=== PATIENT | male | born 1980 | race Caucasian/White ===

== ENCOUNTER 2021-04-06 12:11 | Emergency (ER) | payer OTHER ==
[2021-04-06 12:23] VITALS: BP 132/84; PULSE 90
[2021-04-06] MEDS ORDERED: Sodium Chloride 0.9% 10 ML Syringe FLUSH PRN ×2 (12:28→13:09)
[2021-04-06] MEDS ORDERED: Sodium Chloride 0.9% 1,000 ML IV STA (12:28)
[2021-04-06] MEDS ORDERED: Ondansetron 4 MG/2 ML SDV IVPUSH ONE (12:28)
[2021-04-06] MEDS ORDERED: HYDROmorphone 0.5 MG/0.5 ML Syringe IVPUSH ONE ×3 (12:28→16:13)
--- NOTE | 2021-04-06 12:35 | EDM.PDOC ---
ED HPI GENERAL MEDICAL PROBLEM - General Chief Complaint: Abdominal Pain Stated Complaint: ABDOMINAL PAIN Time Seen by Provider: 04/06/21 12:21 Source of Information: Reports: Patient, RN Notes Reviewed History Limitations: Reports: No Limitations - History of Present Illness INITIAL COMMENTS - FREE TEXT/NARRATIVE: Patient is a 40-year-old male presenting to the emergency department with complaints of lower abdominal pain. Reports symptoms began last evening, however pain was more so in his back. Reports left is worse than right. Today, pain has moved to his lower abdomen with the left being worse than the right. He took ibuprofen last evening with little relief. Denies any fever, chills, nausea, vomiting, or diarrhea. Reports he had a normal bowel movement last ev ening. Denies any visible blood in his stool or urine. Patient has no chronic medical conditions. Denies history of kidney stones. Lower Abdomen Pain Score (Numeric/FACES): 9 - Related Data Allergies Allergy/AdvReac Type Severity Reaction Status Date / Time No Known Allergies Allergy Verified 04/06/21 12:23 Home Meds: Home Meds Meloxicam 15 mg PO DAILY 04/06/21 [History] Sildenafil Citrate [Viagra] 100 mg PO ASDIRECTED 04/06/21 [History] Past Medical History Musculoskeletal History: Reports: Arthritis Psychiatric History: Reports: Anxiety, Depression Endocrine/Metabolic History: Reports: Obesity/BMI 30+ - Past Surgical History Male Surgical History: Reports: Vasectomy Social & Family History - Tobacco Use Tobacco Use Status *Q: Current Every Day Tobacco User Years of Tobacco use: 30 Packs/Tins Daily: 0.1 - Caffeine Use Caffeine Use: Reports: Coffee, Energy Drinks - Recreational Drug Use Recreational Drug Use: No ED ROS GENERAL - Review of Systems Review Of Systems: Comprehensive ROS is negative, except as noted in HPI. ED EXAM, GI/ABD - Physical Exam Exam: See Below Exam Limited By: No Limitations General Appearance: Alert, Mild Distress Respiratory/Chest: No Respiratory Distress, Lungs Clear, Normal Breath Sounds, No Accessory Muscle Use, Chest Non-Tender Cardiovascular: Normal Peripheral Pulses, Regular Rate, Rhythm, No Edema, No Gallop, No JVD, No Murmur, No Rub GI/Abdominal Exam: Normal Bowel Sounds, Soft, No Organomegaly, No Distention, No Abnormal Bruit, No Mass, Pelvis Stable, Tender (LLQ and left lateral) Back Exam: Normal Inspection, Full Range of Motion, CVA Tenderness (L). No: CVA Tenderness (R) Neurological: Alert, Oriented, CN II-XII Intact, Normal Cognition, Normal Gait, Normal Reflexes, No Motor/Sensory Deficits Psychiatric: Normal Affect, Normal Mood Skin Exam: Warm, Dry, Intact, Normal Color, No Rash Course - Vital Signs Last Recorded V/S: Last Vital Signs Temp 98.4 F 04/06/21 12:20 Pulse 90 04/06/21 12:20 Resp 16 04/06/21 12:20 BP 132/84 04/06/21 12:20 Pulse Ox 94 L 04/06/21 12:20 - Orders/Labs/Meds Labs: Laboratory Tests 04/06/21 04/06/21 04/06/21 Range/Units 12:47 12:47 15:17 WBC 16.60 H (4.23-9.07) K/mm3 RBC 5.20 (4.63-6.08) M/mm3 Hgb 15.8 (13.7-17.5) gm/dl Hct 46.7 (40.1-51.0) % MCV 89.8 (79.0-92.2) fl MCH 30.4 (25.7-32.2) pg MCHC 33.8 (32.2-35.5) g/dl RDW Std Deviation 45.1 H (35.1-43.9) fL Plt Count 253 (163-337) K/mm3 MPV 8.7 L (9.4-12.3) fl Neut % (Auto) 83.9 H (34.0-67.9) % Lymph % (Auto) 8.3 L (21.8-53.1) % [place] % (Auto) 6.0 (5.3-12.2) % Eos % (Auto) 1.3 (0.8-7.0) Baso % (Auto) 0.2 (0.1-1.2) % Neut # (Auto) 13.94 H (1.78-5.38) K/mm3 Lymph # (Auto) 1.37 (1.32-3.57) K/mm3 [place] # (Auto) 0.99 H (0.30-0.82) K/mm3 Eos # (Auto) 0.21 (0.04-0.54) K/mm3 Baso # (Auto) 0.04 (0.01-0.08) K/mm3 Sodium 137 (136-145) mEq/L Potassium 3.7 (3.5-5.1) mEq/L Chloride 103 (98-107) mEq/L Carbon Dioxide 26 (21-32) mEq/L Anion Gap 11.7 (5-15) BUN 11 (7-18) mg/dL Creatinine 0.8 (0.7-1.3) mg/dL Est Cr Clr Drug Dosing 112.46 mL/min Estimated GFR (MDRD) > 60 (>60) mL/min BUN/Creatinine Ratio 13.8 L (14-18) Glucose 109 H (70-99) mg/dL Calcium 8.2 L (8.5-10.1) mg/dL Total Bilirubin 0.6 (0.2-1.0) mg/dL AST 13 L (15-37) U/L ALT 28 (16-63) U/L Alkaline Phosphatase 76 (46-116) U/L C-Reactive Protein 14.9 H* (<1.0) mg/dL Total Protein 7.0 (6.4-8.2) g/dl Albumin 3.4 (3.4-5.0) g/dl Globulin 3.6 gm/dL Albumin/Globulin Ratio 0.9 L (1-2) Lipase 205 (73-393) U/L Urine Color (Yellow) Urine Appearance (Clear) Urine pH (5.0-8.0) Ur Specific [place] (1.005-1.030) Urine Protein (Negative) Urine Glucose (UA) (Negative) Urine Ketones (Negative) Urine Occult Blood (Negative) Urine Nitrite (Negative) Urine Bilirubin (Negative) Urine Urobilinogen (0.2-1.0) Ur Leukocyte Esterase (Negative) Urine RBC (0-5) /hpf Urine WBC (0-5) /hpf Ur Squamous Epith Cells (0-5) /hpf Urine Bacteria (FEW) /hpf Urine Mucus (FEW) /hpf SARS-CoV-2 RNA (SHAWN) Negative (NEGATIVE) 04/06/21 Range/Units 17:35 WBC (4.23-9.07) K/mm3 RBC (4.63-6.08) M/mm3 Hgb (13.7-17.5) gm/dl Hct (40.1-51.0) % MCV (79.0-92.2) fl MCH (25.7-32.2) pg MCHC (32.2-35.5) g/dl RDW Std Deviation (35.1-43.9) fL Plt Count (163-337) K/mm3 MPV (9.4-12.3) fl Neut % (Auto) (34.0-67.9) % Lymph % (Auto) (21.8-53.1) % [place] % (Auto) (5.3-12.2) % Eos % (Auto) (0.8-7.0) Baso % (Auto) (0.1-1.2) % Neut # (Auto) (1.78-5.38) K/mm3 Lymph # (Auto) (1.32-3.57) K/mm3 [place] # (Auto) (0.30-0.82) K/mm3 Eos # (Auto) (0.04-0.54) K/mm3 Baso # (Auto) (0.01-0.08) K/mm3 Sodium (136-145) mEq/L Potassium (3.5-5.1) mEq/L Chloride (98-107) mEq/L Carbon Dioxide (21-32) mEq/L Anion Gap (5-15) BUN (7-18) mg/dL Creatinine (0.7-1.3) mg/dL Est Cr Clr Drug Dosing mL/min Estimated GFR (MDRD) (>60) mL/min BUN/Creatinine Ratio (14-18) Glucose (70-99) mg/dL Calcium (8.5-10.1) mg/dL Total Bilirubin (0.2-1.0) mg/dL AST (15-37) U/L ALT (16-63) U/L Alkaline Phosphatase (46-116) U/L C-Reactive Protein (<1.0) mg/dL Total Protein (6.4-8.2) g/dl Albumin (3.4-5.0) g/dl Globulin gm/dL Albumin/Globulin Ratio (1-2) Lipase (73-393) U/L Urine Color Yellow (Yellow) Urine Appearance Clear (Clear) Urine pH 6.0 (5.0-8.0) Ur Specific [place] 1.020 (1.005-1.030) Urine Protein Negative (Negative) Urine Glucose (UA) Negative (Negative) Urine Ketones Trace H (Negative) Urine Occult Blood 1+ H (Negative) Urine Nitrite Negative (Negative) Urine Bilirubin Negative (Negative) Urine Urobilinogen 0.2 (0.2-1.0) Ur Leukocyte Esterase Negative (Negative) Urine RBC 10-20 H (0-5) /hpf Urine WBC 0-5 (0-5) /hpf Ur Squamous Epith Cells 0-5 (0-5) /hpf Urine Bacteria Few (FEW) /hpf Urine Mucus Few (FEW) /hpf SARS-CoV-2 RNA (SHAWN) (NEGATIVE) Meds: Medications Discontinued Medications Generic Name Dose Route Start Last Admin Trade Name Freq PRN Reason Stop Dose Admin Hydromorphone HCl 0.5 mg 04/06/21 12:28 04/06/21 12:40 Hydromorphone 0.5 Mg/0.5 Ml Syringe IVPUSH 04/06/21 12:29 0.5 mg ONETIME ONE Administration Hydromorphone HCl 0.5 mg 04/06/21 14:24 04/06/21 14:28 Hydromorphone 0.5 Mg/0.5 Ml Syringe IVPUSH 04/06/21 14:25 0.5 mg ONETIME ONE Administration Hydromorphone HCl 0.5 mg 04/06/21 16:13 04/06/21 16:17 Hydromorphone 0.5 Mg/0.5 Ml Syringe IVPUSH 04/06/21 16:14 0.5 mg ONETIME ONE Administration Hydromorphone HCl Confirm 04/06/21 16:14 04/06/21 16:20 Hydromorphone 0.5 Mg/0.5 Ml Syringe Administered 04/06/21 16:15 Not Given Dose 0.5 mg .ROUTE .STK-MED ONE Sodium Chloride 1,000 mls @ 150 mls/hr 04/06/21 12:28 04/06/21 12:40 Normal Saline IV 04/06/21 19:07 150 mls/hr NOW STA Administration Piperacillin Sod/Tazobactam 100 mls @ 200 mls/hr 04/06/21 15:07 04/06/21 15:20 Sod 4.5 gm/ Sodium Chloride IV 04/06/21 15:36 200 mls/hr ONETIME ONE Administration Iopamidol 100 ml 04/06/21 13:09 04/06/21 13:24 Iopamidol 612 Mg/Ml 100 Ml Bottle IVPUSH 04/06/21 13:10 100 ml ONETIME ONE Administration Ketorolac Tromethamine 30 mg 04/06/21 14:24 04/06/21 14:28 Ketorolac 30 Mg/Ml Sdv IVPUSH 04/06/21 14:25 30 mg ONETIME ONE Administration Ondansetron HCl 4 mg 04/06/21 12:28 04/06/21 12:40 Ondansetron 4 Mg/2 Ml Sdv IVPUSH 04/06/21 12:29 4 mg ONETIME ONE Administration Sodium Chloride 10 ml 04/06/21 12:28 04/06/21 12:40 Sodium Chloride 0.9% 10 Ml Syringe FLUSH 10 ml ASDIRECTED PRN Administration Keep Vein Open Sodium Chloride 10 ml 04/06/21 13:09 04/06/21 13:24 Sodium Chloride 0.9% 10 Ml Syringe FLUSH 10 ml ONETIME PRN Administration IV FLUSH - Re-Assessments/Exams Free Text/Narrative Re-Assessment/Exam: Patient is a 40-year-old male presenting to the emergency department with complaints of left flank and left lower quadrant abdominal pain. Symptoms began last evening. He has had no nausea, vomiting, diarrhea, fever, or chills. On exam, he does have significant left lower quadrant, left lateral, and left flank tenderness. I have ordered blood work, urinalysis, CT scan of the abdomen pelvis with IV contrast, IV fluids, Zofran, and Dilaudid. 04/06/21 16:33 CT scan of the abdomen pelvis impression as follows: 1. Acute diverticulitis involving the upper aspect of the descending colon. Small amount of loculated air is present within the pericolonic space compatible with contained perforation. No abscess is currently identified. Case was discussed with the general surgeon on-call, Dr. Parks. He recommended admission of the patient for IV antibiotics, bowel rest, and monitoring. Unfortunately do not have a bed available in our facility. I have ordered Zosyn to be given per Dr. Parks's recommendation. I did call and speak with [facility] and they have graciously excepted him for direct admission. Admitting provider will be Dr. Ward. Patient updated and is in agreement with plan. We will plan to transport the patient by ambulance. 04/06/21 16:36 Unfortunately there currently no ambulance is available for transport at this time. Patient would like to be transported by private vehicle. His will drive him. We will wrap up his IV and he will transport to [place] via private vehicle. Departure - Departure Time of Disposition: 16:30 Disposition: DC/Tfer to Acute Hospital 02 Condition: Good Clinical Impression: Diverticulitis large intestine Qualifiers: Diverticulitis bleeding: without bleeding Diverticulitis complication: with perforation and without abscess Qualified Code(s): K57.20 - Diverticulitis of large intestine with perforation and abscess without bleeding - Discharge Information Referrals: Job Rosenbaum MD [Primary Care Provider] - Forms: ED Department Discharge Additional Instructions: You were seen in the emergency department for left-sided abdominal pain and back pain. CT scan of your abdomen pelvis was completed and show that you have diverticulitis with a 6 small perforation. IV antibiotics were administered in the ER. Arrangements have been made for you to be admitted to [facility] in [place]. Recommend that you go directly to their facility. Do not eat anything enroute. You may have small sips of clear liquids however. If you should experience any difficulties while enroute, please call 911. Sepsis Event Note (ED) - Evaluation Sepsis Screening Result: No Definite Risk
[2021-04-06] MEDS ORDERED: Iopamidol 612 MG/ML 100 ML Bottle IVPUSH ONE (13:09)
[2021-04-06] MEDS ORDERED: Ketorolac 30 MG/ML SDV IVPUSH ONE (14:24)
[2021-04-06] MEDS ORDERED: Piperacillin/Tazobactam 4.5 GM in Sodium Chloride 0.9% 100 ML IV ONE (15:07)
[2021-04-06] MEDS ORDERED: HYDROmorphone 0.5 MG/0.5 ML Syringe ONE (16:14)
--- NOTE | 2021-04-07 15:16 | CT ---
CT abdomen and pelvis Technique: Multiple axial sections were obtained from above the dome of the diaphragm inferiorly through the pubic symphysis. Intravenous contrast was utilized. No oral contrast has been given. Delayed images were also obtained from above the dome of the diaphragm inferiorly through the pubic symphysis. Comparison: No prior abdominal imaging is available. Findings: Slight inflammatory change is seen around the descending colon in area of diverticulosis. Small amount of adjacent extraluminal air is seen within the pericolonic fat. Other diverticuli are scattered throughout the colon. Slight atelectasis is noted posteriorly within both lung bases. Liver contains no focal abnormality. Adrenal glands show no nodule. Spleen size is normal. Gallbladder contains no calcified gallstones. Kidneys show contrast enhancement with no hydronephrosis or mass. Delayed images shows contrast excreted into both collecting systems and ureters with contrast also noted within the bladder. Abdominal aorta shows no aneurysm. No retroperitoneal adenopathy or mesenteric abnormalities are seen. Appendix is seen which is normal. No pelvic mass or adenopathy is appreciated. Bone window settings were reviewed which show no acute osseous abnormality. Impression: 1. Diffuse diverticuli within the colon. Area of inflammatory change around the descending colon with a small amount of extraluminal air compatible with diverticulitis. 2. No other acute abnormality is seen on CT study of the abdomen and pelvis. Diagnostic code #3 I agree with preliminary report from [facility], finalized on 04/06/21, 3:26 PM CDT, code 1
== END 2021-04-06 17:46 ==
LOC: JD.ED 12:11
DX: K57.20 Diverticulitis of large intestine with perforation and abscess without bleeding (principal); E66.9 Obesity, unspecified; Z72.0 Tobacco use; Z68.32 Body mass index [BMI] 32.0-32.9, adult; Z20.822 Contact with and (suspected) exposure to COVID-19
CPT/HCPCS: 36415; 74177; 80053; 81001; 83690; 85025; 86140; 87635; 96365; 96375; 96376; 99285; J1170; J1885; J2405; J2543; J7030; Q9967; U0002